=== PATIENT | male | born 1970 | race Caucasian/White ===

== ENCOUNTER 2018-06-12 06:09 | Observation (INO) | payer BC, OTHER, SELFPAY ==
[2018-06-12] MEDS ORDERED: Ondansetron HCl/PF 4 MG/2 ML Vial ONE (06:36)
[2018-06-12] MEDS ORDERED: Morphine 4 MG/ML VIAL ONE (06:36)
[2018-06-12 06:44] LABS: #Basophils 0.1 thou/uL (0.0-0.2); #Eosinphils 0.1 thou/uL (0.0-0.7); #Lymphocytes 1.7 thou/uL (1.20-3.40); #Monocytes 0.9 thou/uL (0.11-0.59); #Neutrophils 8.5 thou/uL (1.40-6.50); %Basophils 0.6 % (0.0-1.0); %Eosinophils 0.6 % (0.0-10.0); %Monocytes 7.7 % (0.0-10.0); %Neutrophils 76.1 % (42.0-75.0); Hemoglobin 18.1 g/dL (14.0-18.0); Mean Corpuscular HGB CONC 33.7 g/dL (32.0-36.0); Mean Corpuscular Hemoglobin 29.7 pg (27.0-31.0); Mean Corpuscular Volume 88.2 fL (78.0-98.0); Mean Platelet Volume 8.4 fL (7.4-10.4); Platelet Count 202 thou/uL (130-400); RBC Distribution Width 11.5 % (11.5-14.5); White Blood Cell (WBC) Count 11.2 thou/uL (4.8-10.8)
[2018-06-12 07:08] LABS: ALT (SGPT) 62 U/L (8-55); AST (SGOT) 40 U/L (5-34); Albumin 4.9 g/dL (3.5-5.0); Alkaline Phosphatase 100 U/L (40-150); Anion Gap 17 mmol/L (10-20); BUN (Urea Nitrogen) 15 mg/dL (8.9-20.6); Bilirubin, Total 0.8 mg/dL (0.2-1.2); Calc. Creatinine Clearance 0 mL/min (70-130); Calcium 11.5 mg/dL (7.8-10.44); Carbon Dioxide 25 mmol/L (22-29); Chloride 96 mmol/L (98-107); Estimated GFR-MDRD 55; Globulin 3.6 g/dL (2.4-3.5); Glucose 299 mg/dL (70-105); Lipase 24 U/L (8-78); Potassium 4.3 mmol/L (3.5-5.1); Protein, Total 8.5 g/dL (6.0-8.3); Sodium 134 mmol/L (136-145)
[2018-06-12 07:11] LABS: CKMB 1.6 ng/mL (0-6.6); Troponin I Less than 0.010 ng/mL (< 0.028)
[2018-06-12] MEDS ORDERED: diphenhydrAMINE 50 MG/ML VIAL ONE (07:34)
--- NOTE | 2018-06-12 09:06 | RAD ---
PORTABLE CHEST 1 VIEW: Date: 06/12/18 Time: 0627 hours HISTORY: Abdominal pain, nausea, and vomiting. FINDINGS: The heart size is normal. Lungs are well expanded without focal areas of consolidation, pneumothorax, or pleural effusions. IMPRESSION: No acute process. POS: [facility]
--- NOTE | 2018-06-12 09:55 | CT ---
CT OF THE ABDOMEN AND PELVIS WITH IV CONTRAST: Date: 06/12/18 INDICATION: Abdominal pain that had started last night around 9:38 PM. The patient reportedly was recently mowing and had development of abdominal pain following mowing the yard. Patient thought it was related to p ossible dehydration and drank an entire bottle of Gatorade that did not relieve the pain. The patient has had vomiting. COMPARISON: None. FINDINGS: Lung bases are clear. There is fatty infiltration of the liver. There is a fold involving the gallbla dder fundus. Pancreas and adrenal glands are normal appearing. Spleen is normal appearing. There are dilated loops of jejunum, as well as portions of the duodenum. There is fluid within endomesenteric l eaves of the central abdomen. There is a transition point seen within the lower mid abdomen anteriorl y on image 67 of series 2 and image 47 of the coronal series. The distal ileum is decompressed. There is a normal appendix in the right lower quadrant. There are calcifications of the vas deferens, whic h can be seen in diabetic males. There is a fat-containing left inguinal hernia. Bladder, rectum, and perirectal soft tissues are unremarkable. No acute osseous abnormality is evident. There is a 6.7 mm stone involving the lower pole of the right kidney. IMPRESSION: 1. Findings suggestive of mild partial small bowel obstruction with transition zone seen within the lower anterior abdomen. There is edema within the endomesenteric leaves. No definite drainable fluid collection or free air is seen. 2. Right nephrolithiasis. 3. Fatty liver. POS: [facility]
[2018-06-12 10:51] VITALS: BMI 32.8
[2018-06-12] MEDS ORDERED: HumaLOG 300 UNITS/3 ML VIAL SC PRN ×2 (12:13)
[2018-06-12] MEDS ORDERED: Dextrose 5% in Water 1,000 ML IV PRN (12:13)
[2018-06-12] MEDS ORDERED: Ondansetron HCl/PF 4 MG/2 ML Vial IVP PRN (12:13)
[2018-06-12] MEDS ORDERED: Dextrose 50% Abboject 50 ML SYRINGE SLOW IVP PRN (12:13)
[2018-06-12] MEDS ORDERED: hydrALAZINE 20 MG/ML VIAL SLOW IVP PRN (12:13)
--- NOTE | 2018-06-12 12:25 | HP ---
PRIMARY CARE PHYSICIAN: Dr. Hannah Rogel. CHIEF COMPLAINT: Severe abdominal pain. HISTORY OF PRESENT ILLNESS: Mr. Fraga is a pleasant 47-year-old gentleman that has a history of diabetes mellitus and gastroesophageal reflux disease. He was in his usual state of health until ye around 9:00 p.m., he started having the sudden onset of severe abdominal pain. He says he tr ied eating something and then just vomited. He was up all night with the severe pain and then this m orning it continued. He says it was in the midepigastric region, more or less band-like and he was a lso having severe nausea as well and as a result, he came to the ER for evaluation. He underwent a C T scan of the abdomen which demonstrated an area suggestive of a small-bowel obstruction as well as r ight nephrolithiasis and he is being placed in observation for further evaluation. The patient said he did have some chills yesterday, but no fever. He had a bowel movement yesterday which he said was normal for him, around 1:00 p.m. There was no blood in the stools and no melena. He also denies an y hematemesis. The patient denies any other complaints such as chest pain, shortness of breath, PND, orthopnea, etc. REVIEW OF SYSTEMS: All systems were reviewed and are negative except for that mentioned in history o f present illness. PAST MEDICAL HISTORY: Significant for diabetes mellitus type 2, obesity, elevated cholesterol, and g astroesophageal reflux disease. PAST SURGICAL HISTORY: He has had an abdominal hernia repaired about a year ago by Dr. Orantes. ALLERGIES: PENICILLIN, IODINATED CONTRAST, CANAGLIFLOZIN and PENICILLIN. SOCIAL HISTORY: He is single. He has no children. He smokes about a pack a day for the last 2 year s and occasionally drinks. FAMILY HISTORY: Significant for diabetes mellitus. MEDICATIONS: Include Nexium 40 mg daily, fenofibrate 160 mg daily, Actos 30 mg daily, glimepiride 4 mg daily, metformin 1000 mg twice a day, lisinopril 20 mg daily, Crestor 40 mg daily. PHYSICAL EXAMINATION: GENERAL: He is alert and oriented. He appears to be in no acute distress. VITAL SIGNS: Blood pressure was 123/83, heart rate is 106, respiratory rate of 20, temperature is 99 .1. HEENT: Pupils are equal, round, and reactive. Extraocular muscles are intact. Sclerae are anicteri c. Throat: There is no erythema, no exudates. NECK: No adenopathy, no bruits. LUNGS: Clear to auscultation. There was no wheezing, no rales. CARDIOVASCULAR: He has a normal S1, S2. There was no S3 or S4. No murmurs, clicks or rubs. ABDOMEN: Mildly distended. He has got just some very mild diffuse tenderness. No rebound or guardi ng. Tympanic to percussion. EXTREMITIES: There is no edema. He has got palpable dorsalis pedis pulses bilaterally. NEUROLOGIC: Exam is nonfocal with muscle strength 5/5 bilaterally. LABORATORY RESULTS: Sodium 134, potassium 4.3, chloride is 96, CO2 is 25, BUN of 15, creatinine is 1 .37 and glucose is 299. Troponin is less than 0.010. White blood cell count 11.2, hemoglobin 18.1, hematocrit is 53.8, platelet count is 202. ASSESSMENT AND PLAN: This is a pleasant 47-year-old gentleman who presents to the emergency room wit h severe abdominal pain. CT findings suggestive of a partial small-bowel obstruction. This is likel y as a result of a previous surgery in which he had a year ago with a hernia repair. He will be plac ed in observation and placed on bowel rest, IV fluids, antiemetics, and IV proton pump inhibitor and monitor to see if this will resolve spontaneously. Surgery has already been contacted from the ER. Diabetes mellitus, since he will be n.p.o., we will hold his usual diabetic medications and place him on sliding scale insulin. Otherwise, further recommendations will depend on his progress.
[2018-06-12] MEDS ORDERED: Pantoprazole 40 MG VIAL IVP SCH (12:30)
[2018-06-12] MEDS: Nicotine 14 MG PATCH TD SCH (12:51)
[2018-06-12] MEDS ORDERED: ISOVUE-370 76%-LOCM 1 ML ONE (12:56)
[2018-06-12] MEDS: NS 0.9% w/ 20 MEQ KCL 1,000 ML/1,000 ML BAG IV SCH ×2 (12:58→22:05)
[2018-06-12] MEDS ORDERED: Ketorolac Tromethamine 30 MG/ML VIAL IVP PRN (17:03)
[2018-06-12] MEDS ORDERED: Acetaminophen 1,000 MG in Premix Bag 1 BAG IVPB PRN (17:03)
--- NOTE | 2018-06-12 18:19 | RAD ---
ABDOMEN ONE VIEW 06/12/18 HISTORY: NG tube placement. COMPARISON: CT same day. FINDINGS: Enteric tube is in place with tip at the gastric fundus. IMPRESSION: Enteric tube tip gastric fundus. POS: [facility]
--- NOTE | 2018-06-12 20:34 | OP ---
This is a late dictation, operation done on 05/15/2017 PREOPERATIVE DIAGNOSIS: Ventral hernia, supraumbilical. POSTOPERATIVE DIAGNOSIS: Ventral hernia, supraumbilical. PROCEDURE: Ventral hernia repair with PVP mesh. SURGEON: Dr. Tolu Orantes. ANESTHESIA: General. Local 0.5% Marcaine with epinephrine 30 mL PROCEDURE IN DETAIL: The patient was taken to the operating room under general anesthesia, supraumbi lical incision made and carried down to the skin, subcutaneous tissue and defect noted in the fascia. Hernia sac reduced and preperitoneal space dissected free and a 4 cm PVP mesh placed in the hernia defect and placed against the abdominal wall using the straps to control it. Fascial defect closed w ith interrupted sutures of 0 PDS pop-offs. Once this was closed, the straps were removed. Sutures t ied. Subcutaneous tissues approximated with 3-0 Monocryl, skin with subdermal 4-0 Monocryl and [place] Glue applied. The patient tolerated the procedure well.
--- NOTE | 2018-06-12 20:43 | HP ---
HISTORY OF PRESENT ILLNESS: A 47-year-old male patient who is admitted on by Hospitalist Se ramirez. The patient gives a long history and that his bowel function was doing well. He was not havi ng any problems until two days ago, when he stopped on the side of highway, was chasing a pig on the road for a family to find out that it was not their pet. He states he was twisting and turning and r unning. He states that he began experiencing pain last night after mowing the grass. He drank a lar ge bowl of Gatorade per his history. He began having abdominal pain, nausea, vomiting, and abdominal distention. He last had a small bowel movement yesterday. He has not had a bowel movement or passe d any gas since that time. He presented to the emergency room and laboratories were essentially norm al. CAT scan of the abdomen and pelvis was obtained revealing changes suggestive of bowel obstructio n. He had proximal small bowel dilatation, distal small bowel decompression. What was not recorded on the CAT scan was that he has significant constipation. There was noted to be a transition zone ho wever in the small bowel in the lower abdomen. This CAT scan was dictated at 7 o'clock this morning. The patient was admitted to the Hospitalist Service. I was called at 4 o'clock this afternoon by Radha Cutler notifying that he was my patient and told him that I would see him. The patient since being in the hospital has had at least 2 episodes of emesis, making him feel somewhat better. He has not passed any flatus since being here. ALLERGIES: IODINATED CONTRAST, PENICILLIN. TOBACCO: He smokes half a pack a day for the last two years. ALCOHOL: Occasionally drinks alcohol. MEDICATIONS: Nexium 40 mg a day, fenofibrate 160 mg, Actos 30 mg a day, glimepiride 4 mg a day, metf ormin 1000 mg twice a day, lisinopril 20 mg a day, Crestor 40 mg a day. SOCIAL HISTORY: The patient is single. PAST SURGICAL HISTORY: Ventral hernia repair last year as noted above. PAST MEDICAL HISTORY: Diabetes mellitus, obesity, elevated cholesterol, GERD, sleep apnea, obesity. PHYSICAL EXAMINATION: VITAL SIGNS: 5 feet 10 inches, 229 pounds, 32 BMI, 98.2, 109, 111/72. HEAD, EARS, EYES, NOSE, AND THROAT: Unremarkable. LUNGS: Clear to auscultation. CARDIAC: Regular rate and rhythm without murmur or gallop. ABDOMEN: Soft, slightly tympanitic, slightly distended, obese. Ventral hernia repair, supraumbilica l intact, hernia repair intact. No signs of recurrence. EXTREMITIES: Unremarkable. No ankle edema. LABORATORY DATA: White count 11, hemoglobin 18 (past hemoglobin 16 last year). Sodium 134, potassiu m 4.3, chloride 96, creatinine 1.37, glucose 299, calcium 11.5. AST and ALT 40 and 62, lipase 24. CAT scan reviewed as noted, small nephrolithiasis, nonobstructing, right; in addition to above findin gs. ASSESSMENT AND PLAN: History and radiological findings suggestive of bowel obstruction, although he is constipated on CAT scan. We would recommend NG tube to low intermittent suction and I have placed this by the time of this dictation, x-ray will confirm this. We will obtain abdominal x-rays tomorr ow and obtain a small bowel follow through. I have told the patient that there is a chance that this will resolve nonoperatively, but should it not, laparoscopy could be undertaken with some hope of hernandez ccess. We will reassess him in the morning pending his clinical course.
[2018-06-12] MEDS ORDERED: Enoxaparin Sodium 40 MG/0.4 ML SYRINGE SC SCH (21:00)
[2018-06-13 04:42] LABS: #Eosinphils 0.1 thou/uL (0.0-0.7); #Lymphocytes 2.2 thou/uL (1.20-3.40); #Monocytes 0.8 thou/uL (0.11-0.59); %Basophils 0.6 % (0.0-1.0); %Eosinophils 1.3 % (0.0-10.0); %Lymphocytes 36.3 % (21.0-51.0); %Monocytes 12.3 % (0.0-10.0); %Neutrophils 49.5 % (42.0-75.0); Hemoglobin 15.2 g/dL (14.0-18.0); Mean Corpuscular HGB CONC 34.7 g/dL (32.0-36.0); Mean Corpuscular Volume 89.2 fL (78.0-98.0); Platelet Count 185 thou/uL (130-400); RBC Distribution Width 11.4 % (11.5-14.5); Red Blood Cell (RBC) Count 4.89 mill/uL (4.70-6.10); White Blood Cell (WBC) Count 6.1 thou/uL (4.8-10.8)
[2018-06-13 05:11] LABS: Anion Gap 14 mmol/L (10-20); BUN (Urea Nitrogen) 21 mg/dL (8.9-20.6); Calc. Creatinine Clearance 111 mL/min (70-130); Calcium 9.3 mg/dL (7.8-10.44); Carbon Dioxide 23 mmol/L (22-29); Chloride 108 mmol/L (98-107); Estimated GFR-MDRD 67; Glucose 150 mg/dL (70-105); Potassium 4.2 mmol/L (3.5-5.1); Sodium 141 mmol/L (136-145)
[2018-06-13] MEDS: NS 0.9% w/ 20 MEQ KCL 1,000 ML/1,000 ML BAG IV SCH (06:03)
[2018-06-13] MEDS ORDERED: Pantoprazole 40 MG VIAL IVP SCH (09:00)
--- NOTE | 2018-06-13 09:17 | RAD ---
CHEST 1 VIEW AND ABDOMEN 2 VIEWS: HISTORY: A 47-year-old male with a history of followup small bowel obstruction. NG tube is in place within the stomach. No significant acute process within the chest, stable from . Abdomen demonstrates less prevalent small bowel air and fluid than when compared to the prior study. Stable right renal calculus. Gas and fecal material in the colon. Dilute contrast in the urinary b ladder. IMPRESSION: Some decompression of the previously noted abnormally dilated small bowel loops. Gas and fecal mater ial in the colon. Right renal calculus. The patient is scheduled for a small bowel later this morning. POS: [facility]
[2018-06-13] MEDS ORDERED: traMADol HCl 50 MG TAB PO PRN ×2 (10:30)
[2018-06-13] MEDS ORDERED: Ibuprofen 600 MG TAB PO PRN (10:30)
[2018-06-13] MEDS ORDERED: Acetaminophen 500 MG TAB PO PRN (10:30)
--- NOTE | 2018-06-13 10:52 | RAD ---
SMALL BOWEL SERIES: HISTORY: A 47-year-old male with a history of small bowel obstruction. FINDINGS: The patient was given Gastrografin through the NG tube. Immediate, 15 and 30 minute imaging was perf ormed. Contrast media readily passed through borderline dilated jejunum into a normal-appearing ileu m with emptying into the colon after 15 minutes. No evidence for definitive transition area. IMPRESSION: Rapid passage of Gastrografin contrast through the small bowel entering the colon in 15 minutes. Power y mild or borderline dilated jejunal loops with mild or borderline mucosal fold thickening, nonspecif ic. Nonobstructing right renal calculus. POS: [facility]
[2018-06-13] MEDS: Nicotine 14 MG PATCH TD SCH (11:11)
[2018-06-13] MEDS ORDERED: MD-Gastroview 120 ML BOT ONE (13:39)
[2018-06-13 16:03] VITALS: BP 138/78; TEMP 98.2
--- NOTE | 2018-06-13 16:34 | PRG ---
DATE OF SERVICE: 06/13/2018 SUBJECTIVE: Mr. Fraga is doing well today. He had a small bowel follow through and abdominal x -rays today. His small bowel follow through was normal. His NG tube was removed. He has been neelima ating his diet. He has had numerous bowel movements. PHYSICAL EXAMINATION: LUNGS: Clear to auscultation. CARDIAC: Regular rate and rhythm without murmur or gallop. ABDOMEN: Soft, nontender, good bowel sounds. VITAL SIGNS: Temperature 97.4 degrees, heart rate 94, respiratory rate 18, 153/93. ASSESSMENT AND PLAN: Doing well. The patient is ready for discharge. He can follow up in my office as needed. Advised to take MiraLax and fiber [id number] as necessary.
--- NOTE | 2018-06-14 01:09 | DIS ---
PRIMARY CARE PHYSICIAN: Dr. Rogel. DATE OF ADMISSION: 06/12/2018 DATE OF DISCHARGE: 06/13/2018 DISCHARGE DIAGNOSES: 1. Partial small-bowel obstruction. 2. Severe constipation. 3. Diabetes mellitus, type 2. 4. Obesity. 5. Dyslipidemia. 6. Gastroesophageal reflux disease. DISCHARGE MEDICATIONS: Include pioglitazone 30 mg daily, metformin 1000 mg twice a day, lisinopril 2 0 mg daily, glimepiride 4 mg daily, TriCor 160 mg daily, Nexium 40 mg daily, and Lipitor 40 mg at bed time. PROCEDURES DONE DURING ADMISSION: The patient had a CT scan of the abdomen and pelvis which was sign ificant for findings suggestive of mild partial small-bowel obstruction with a transition zone seen w ithin the lower anterior abdomen. The patient also had a small bowel series showing rapid passage of the Gastrografin contrast through the small bowel, entering the colon within 15 minutes. CODE STATUS: FULL CODE. ALLERGIES: IODINATED CONTRAST, BOTH ORAL AND IV; CANAGLIFLOZIN; and PENICILLIN. HOSPITAL COURSE: Mr. Fraga is a pleasant 47-year-old gentleman, who presented to the emergency room complaining of severe abdominal pain. He was admitted for partial small-bowel obstruction. He was made n.p.o. and placed on IV fluids and bowel rest. He was also evaluated by General Surgery. A small bowel follow through was obtained, which was essentially negative. The following day, his sym ptoms actually improved. It is felt that his symptoms likely were related primarily to severe consti pation. It is possible that the fenofibrate could be the culprit. He has been instructed to take Mi raLax on a daily basis as well as a fiber supplement and he is being discharged home to have close fo llowup with his primary care physician in 1-2 weeks.
--- NOTE | 2018-06-14 16:57 | EKG ---
Test Reason : Blood Pressure : / mmHG Vent. Rate : 096 BPM Atrial Rate : 096 BPM P-R Int : 142 ms QRS Dur : 080 ms QT Int : 342 ms P-R-T Axes : 035 -15 018 degrees QTc Int : 432 ms Normal sinus rhythm Possible Left atrial enlargement Left ventricular hypertrophy Abnormal ECG Confirmed by FLOR AVINA DO ([id number]), video effects editor GAL JONES ([id number]) on 06/14/2018 4:56:26 PM Referred By: Confirmed By:FLOR AVINA DO
== END 2018-06-13 16:31 | disposition home or self-care (01) ==
LOC: ERS 06:09 → 2SW 09:15
PROVIDERS: ADMIT Internal Medicine; ATTEND Internal Medicine
DX: K56.600 Partial intestinal obstruction, unspecified as to cause (principal); E11.9 Type 2 diabetes mellitus without complications; K21.9 Gastro-esophageal reflux disease without esophagitis; E78.00 Pure hypercholesterolemia, unspecified; F17.210 Nicotine dependence, cigarettes, uncomplicated; K59.00 Constipation, unspecified; E66.9 Obesity, unspecified; Z68.32 Body mass index [BMI] 32.0-32.9, adult; Z79.84 Long term (current) use of oral hypoglycemic drugs; Z79.899 Other long term (current) drug therapy; Z88.0 Allergy status to penicillin; Z88.8 Allergy status to other drugs, medicaments and biological substances; Z91.041 Radiographic dye allergy status; Z98.890 Other specified postprocedural states
CPT/HCPCS: 36415; 36416; 71045; 74018; 74022; 74177; 74250; 80048; 80053; 82553; 83690; 83970; 84484; 85025; 93005; 96361; 96372; 96374; 96375; 96376; C9113; G0378; J1200; J1650; J1885; J2270; J2405

== ENCOUNTER 2021-10-19 13:07 | Emergency (ER) | payer OTHER, SELFPAY ==
[2021-10-19 17:42] LABS: #Basophils 0.1 thou/uL (0.0-0.2); #Eosinphils 0.2 thou/uL (0.0-0.7); #Lymphocytes 2.4 thou/uL (1.20-3.40); #Monocytes 0.8 thou/uL (0.11-0.59); #Neutrophils 3.4 thou/uL (1.40-6.50); %Basophils 1.1 % (0.0-1.0); %Eosinophils 2.4 % (0.0-10.0); %Lymphocytes 34.9 % (21.0-51.0); %Monocytes 11.1 % (0.0-10.0); %Neutrophils 50.5 % (42.0-75.0); Hemoglobin 16.6 g/dL (14.0-18.0); Mean Corpuscular HGB CONC 34.5 g/dL (32.0-36.0); Mean Corpuscular Hemoglobin 31.3 pg (27.0-31.0); Mean Corpuscular Volume 90.8 fL (78.0-98.0); Mean Platelet Volume 8.4 fL (7.4-10.4); Platelet Count 217 thou/uL (130-400); RBC Distribution Width 11.2 % (11.5-14.5); Red Blood Cell (RBC) Count 5.31 mill/uL (4.70-6.10); White Blood Cell (WBC) Count 6.8 thou/uL (4.8-10.8)
[2021-10-19 17:44] LABS: Bilirubin Negative (Negative); Blood, Urine Negative (Negative); Clarity Clear (Clear); Glucose, Urine (Dipstick) 70 mg/dL (Negative); Ketone, Urine Negative (Negative); Leukocyte Negative Leu/uL (Negative); Nitrite Negative (Negative); Protein, Urine (Dipstick) Negative (Neg-Trace); Specific Gravity, Urine 1.004 (1.002-1.036); Urobilinogen Normal mg/dL (Less than 2); pH, Urine 5.5 (5.0-9.0)
[2021-10-19 18:07] LABS: ALT (SGPT) 47 U/L (8-55); AST (SGOT) 23 U/L (5-34); Albumin 4.4 g/dL (3.5-5.0); Alkaline Phosphatase 77 U/L (40-110); Anion Gap 9 mmol/L (10-20); BUN (Urea Nitrogen) 11 mg/dL (8.4-25.7); Bilirubin, Total 0.5 mg/dL (0.2-1.2); Calc. Creatinine Clearance 0 mL/min (70-130); Calcium 10.5 mg/dL (7.8-10.44); Carbon Dioxide 29 mmol/L (22-29); Chloride 101 mmol/L (98-107); Globulin 2.9 g/dL (2.4-3.5); Glucose 166 mg/dL (70-105); Potassium 4.3 mmol/L (3.5-5.1); Protein, Total 7.3 g/dL (6.0-8.3); Sodium 135 mmol/L (136-145)
== END 2021-10-19 18:30 | disposition home or self-care (01) ==
LOC: ERS 13:07
DX: K62.89 Other specified diseases of anus and rectum (principal); K64.4 Residual hemorrhoidal skin tags; E83.52 Hypercalcemia; E11.65 Type 2 diabetes mellitus with hyperglycemia; F17.210 Nicotine dependence, cigarettes, uncomplicated; Z79.4 Long term (current) use of insulin
CPT/HCPCS: 36415; 76870; 80053; 81003; 85025; 87086; 93976

== ENCOUNTER 2022-07-24 10:35 | Outpatient (CLI) | payer BC | END 2022-07-24 10:36 | disposition home or self-care (01) | LOC: RAD-FRANK 10:35 | PROVIDERS: ATTEND Nurse Practitioner Family | DX: R07.89 Other chest pain (principal) | CPT/HCPCS: 71046 ==

== ENCOUNTER 2024-05-07 14:58 | Outpatient (CLI) | payer BC | END 2024-05-07 14:59 | disposition home or self-care (01) | LOC: BICULT 14:58 | PROVIDERS: ATTEND Nurse Practitioner Family | DX: R59.1 Generalized enlarged lymph nodes (principal); M79.89 Other specified soft tissue disorders; R10.2 Pelvic and perineal pain; K40.90 Unilateral inguinal hernia, without obstruction or gangrene, not specified as recurrent | CPT/HCPCS: 76999 ==